=== PATIENT | female | born 1985 | race American Indian/Alaskan Native ===

== ENCOUNTER 2022-06-26 11:33 | Emergency (ER) | payer MEDICAID ==
--- NOTE | 2022-06-26 11:50 | Emergency Department Report ---
Blank Doc - Documentation Documentation: 36-year-old female that presents with upper resp symptoms, dysuria, and pelvic pain. 1- This is a initial triage assessment/medical screening only. Full assessment and work-up will be completed once the patient is in proper hospital gown, ED bed and in a private room setting. This initial assessment/diagnostic orders/clinical plan/ treatment(s) is/are subject to change based on pt's health status, clinical progression and re-assessment by fellow clinical providers in the ED. Further treatment and workup at subsequent clinical providers discretion. Patient/guardians urged not to elope from ED as their condition may be serious if not clinically assessed and managed. 2-labs 3-UA 4-CXR The patient was evaluated in the emergency department for symptoms described in the history of present illness. He/she was evaluated in the context of the global COVID-19 pandemic, which necessitated consideration that the patient might be at risk for infection with the virus that causes COVID-19. Institutional protocols and algorithms that pertain to the evaluation of patients at risk for COVID-19 are in a state of rapid change based on information released by regulatory bodies including the CDC and federal and state organizations. These policies and algorithms were followed during the patient's care in the emergency department. Please note that these policies, procedures and recommendations changed on a rapid basis.
[2022-06-26 13:19] LABS: Basophils # (Auto) 0.1 K/mm3 (0.0-0.1); Basophils % (Auto) 0.7 % (0.0-1.8); Eosinophils % (Auto) 0.6 % (0.0-4.3); Hematocrit 40.1 % (30.3-42.9); Hemoglobin 12.8 gm/dl (10.1-14.3); Lymphocytes # (Auto) 1.8 K/mm3 (1.2-5.4); Lymphocytes % (Auto) 21.7 % (13.4-35.0); Mean Corpuscular HGB Conc 32 % (30-34); Mean Corpuscular Volume 94 fl (79-97); Monocytes # (Auto) 0.7 K/mm3 (0.0-0.8); Monocytes % (Auto) 8.9 % (0.0-7.3); Platelet Count 377 K/mm3 (140-440); Red Blood Count 4.26 M/mm3 (3.65-5.03); Red Cell Distribution Width 16.4 % (13.2-15.2)
[2022-06-26 13:25] LABS: Alanine Aminotransferase 18 units/L (7-56); Albumin 4.6 g/dL (3.9-5); BUN/Creatinine Ratio 16; Blood Urea Nitrogen 13 mg/dL (7-17); Calcium 9.4 mg/dL (8.4-10.2); Hemolysis Index 3
[2022-06-26 13:25] LABS: Bacteria,Urine 1+ /HPF (Negative); Color,Urine Yellow (Yellow); Mucus,Urine FEW /HPF
[2022-06-26 13:44] LABS: HCG Qualitative,Urine Negative (Negative)
--- NOTE | 2022-06-26 14:38 | XRay Report ---
CHEST 2 VIEWS INDICATION / CLINICAL INFORMATION: cough. COMPARISON: None available. FINDINGS: SUPPORT DEVICES: None. HEART / MEDIASTINUM: No significant abnormality. LUNGS / PLEURA: No significant pulmonary or pleural abnormality. No pneumothorax. ADDITIONAL FINDINGS: No significant additional findings. IMPRESSION: 1. No acute findings. Signer Name: Hardeep Alford MD Signed: 06/26/2022 2:33 PM Workstation Name: [id number]
[2022-06-26] MEDS ORDERED: KETOROLAC 10 MG TAB PO ONE (15:00)
[2022-06-26] MEDS ORDERED: ACETAMINOPHEN W/CODEINE 300-30 MG TAB PO ONE (15:00)
[2022-06-26] MEDS ORDERED: BENZONATATE 100 MG CAP PO ONE (15:00)
[2022-06-26] MEDS ORDERED: predniSONE 20 MG TAB PO ONE (15:00)
--- NOTE | 2022-06-26 15:33 | Emergency Department Report ---
ED ENT HPI - General Chief complaint: Upper Respiratory Infection Stated complaint: ASTHMA FLARE/CHEST PAIN Time Seen by Provider: 06/26/22 11:49 Source: patient Mode of arrival: Ambulatory Limitations: No Limitations - History of Present Illness Initial comments: 36-year-old black female with a past medical history of asthma and diabetes presents to the emergency department for evaluation of few day history of shortness of breath, cough, headache, right ear pain, and fever. She states that her T-max was 103 this morning. She states that she had a negative COVID test 2 days ago. MD complaint: sore throat, ear pain, other (Headache, fever, shortness of breath) -: Gradual, days(s) (2-3) Location: R ear, throat Severity scale (0 -10): 9 Quality: aching Consistency: constant Associated Symptoms: fever, cough, pain with swallowing, sore throat, rhinorrhea. denies: gum swelling, toothache, tinnitus, hearing loss, discharge from ear - Related Data Previous Rx's Medication Instructions Recorded Last Taken Type Azithromycin 250 mg PO DAILY #6 tab 06/26/22 Unknown Rx Benzonatate [Tessalon Perles] 100 mg PO Q8HR PRN #30 cap 06/26/22 Unknown Rx Brompheniramine/Pseudoephed/Dm 10 ml PO TID PRN #120 ml 06/26/22 Unknown Rx [Bromfed Dm Cough Syrup] Allergies Allergy/AdvReac Type Severity Reaction Status Date / Time Penicillins Allergy Anaphylaxis Verified 06/26/22 11:48 ED Dental HPI - General Chief complaint: Upper Respiratory Infection Stated complaint: ASTHMA FLARE/CHEST PAIN Time Seen by Provider: 06/26/22 11:49 Source: patient Mode of arrival: Ambulatory Limitations: No Limitations - Related Data Previous Rx's Medication Instructions Recorded Last Taken Type Azithromycin 250 mg PO DAILY #6 tab 06/26/22 Unknown Rx Benzonatate [Tessalon Perles] 100 mg PO Q8HR PRN #30 cap 06/26/22 Unknown Rx Brompheniramine/Pseudoephed/Dm 10 ml PO TID PRN #120 ml 06/26/22 Unknown Rx [Bromfed Dm Cough Syrup] Allergies Allergy/AdvReac Type Severity Reaction Status Date / Time Penicillins Allergy Anaphylaxis Verified 06/26/22 11:48 ED Review of Systems ROS: Stated complaint: ASTHMA FLARE/CHEST PAIN Other details as noted in HPI Comment: All other systems reviewed and negative Constitutional: fever, malaise. denies: chills, weakness Eyes: denies: eye pain, eye discharge, vision change ENT: ear pain, throat pain, congestion. denies: dental pain Respiratory: cough, shortness of breath. denies: wheezing Cardiovascular: denies: chest pain, palpitations, dyspnea on exertion, orthopnea, edema, syncope, paroxysmal nocturnal dyspnea Gastrointestinal: denies: abdominal pain, nausea, vomiting Genitourinary: denies: urgency, dysuria Musculoskeletal: denies: back pain Neurological: headache. denies: weakness, numbness, paresthesias, confusion, abnormal gait ED Past Medical Hx - Past Medical History Hx Diabetes: Yes Hx Asthma: Yes - Surgical History Additional Surgical History: - Social History Smoking Status: Current Every Day Smoker - Medications Home Medications: Home Medications Medication Instructions Recorded Confirmed Last Taken Type Azithromycin 250 mg PO DAILY #6 tab 06/26/22 Unknown Rx Benzonatate [Tessalon Perles] 100 mg PO Q8HR PRN #30 cap 06/26/22 Unknown Rx Brompheniramine/Pseudoephed/Dm 10 ml PO TID PRN #120 ml 06/26/22 Unknown Rx [Bromfed Dm Cough Syrup] ED Physical Exam - General Limitations: No Limitations General appearance: alert, in no apparent distress - Head Head exam: Present: atraumatic, normocephalic - Eye Eye exam: Present: normal appearance. Absent: conjunctival injection, periorbital swelling, periorbital tenderness - ENT ENT exam: Absent: normal exam (Bilateral nasal mucosal edema), normal orophraynx (Erythema noted to posterior oropharynx) - Expanded ENT Exam Expanded TM/Canal exam: Erythema: Right TM, Bulging: Right TM Mouth exam: Present: normal external inspection Throat exam: Positive: tonsillar erythema. Negative: tonsillomegaly, tonsillar exudate, R peritonsillar mass - Neck Neck exam: Present: normal inspection, lymphadenopathy. Absent: tenderness - Respiratory Respiratory exam: Present: normal lung sounds bilaterally, chest wall tenderness. Absent: respiratory distress, wheezes, rales, rhonchi, stridor - Cardiovascular Cardiovascular Exam: Present: regular rate, normal heart sounds - GI/Abdominal GI/Abdominal exam: Present: soft, normal bowel sounds. Absent: distended, tenderness, guarding, rebound, rigid - Extremities Exam Extremities exam: Present: normal inspection, normal capillary refill - Back Exam Back exam: Present: normal inspection. Absent: CVA tenderness (R), CVA tenderness (L), vertebral tenderness - Neurological Exam Neurological exam: Present: alert, oriented X3, CN II-XII intact, normal gait. Absent: motor sensory deficit - Psychiatric Psychiatric exam: Present: normal affect, normal mood - Skin Skin exam: Present: warm, dry, intact, normal color ED Course Vital Signs 06/26/22 11:44 Temperature 99.0 F Pulse Rate 95 H Respiratory 18 Rate Blood Pressure 118/87 O2 Sat by Pulse 100 Oximetry ED Medical Decision Making - Lab Data Result diagrams: 06/26/22 12:40 06/26/22 12:40 - Radiology Data Radiology results: report reviewed, image reviewed Chest x-ray: FINDINGS: SUPPORT DEVICES: None. HEART / MEDIASTINUM: No significant abnormality. LUNGS / PLEURA: No significant pulmonary or pleural abnormality. No pneumothorax. ADDITIONAL FINDINGS: No significant additional findings. IMPRESSION: 1. No acute findings. - Medical Decision Making 36-year-old black female with a past medical history of asthma and diabetes p resents to the emergency department for evaluation of few day history of shortness of breath, cough, headache, right ear pain, and fever. She states that her T-max was 103 this morning. She states that she had a negative COVID test 2 days ago. Chest x-ray, CBC, CMP, UA, and UPT unremarkable. Patient noted to have right otitis media on exam. Patient will be discharged home with Z-Andrew, Bromnafisa, and Teslexie Martinez to use as directed. She is advised to follow-up with her primary care provider if no improvement or worsening symptoms. She verbalizes understanding of and agreement with plan of care. Critical care attestation.: If time is entered above; I have spent that time in minutes in the direct care of this critically ill patient, excluding procedure time. ED Disposition Clinical Impression: URI with cough and congestion Otitis media Qualifiers: Otitis media type: suppurative Chronicity: acute Laterality: right Recurrence: non-recurrent Spontaneous tympanic membrane rupture: without spontaneous rupture Qualified Code(s): H66.001 - Acute suppurative otitis media without spontaneous rupture of ear drum, right ear Disposition: 01 HOME / SELF CARE / HOMELESS Is pt being admited?: No Does the pt Need Aspirin: No Condition: Stable Instructions: Otitis Media, Adult, [id number], Upper Respiratory Infection, Adult, [id number] Additional Instructions: Take medications as prescribed. Follow-up with your primary care provider if no improvement or worsening symptoms. Return to the emergency department as needed. Prescriptions: Azithromycin 250 mg PO DAILY #6 tab Brompheniramine/Pseudoephed/Dm [Bromfed Dm Cough Syrup] 10 ml PO TID PRN #120 ml PRN Reason: Cough Benzonatate [Tessalon Perles] 100 mg PO Q8HR PRN #30 cap PRN Reason: Cough Referrals: DESTINI ARSHAD MD [Staff Physician] - 3-5 Days Time of Disposition: 15:39
[2022-06-26 15:52] VITALS: BP 130/91
== END 2022-06-28 17:36 | disposition home or self-care (01) ==
LOC: ED 11:33
DX: J06.9 Acute upper respiratory infection, unspecified (principal); H66.91 Otitis media, unspecified, right ear; E11.9 Type 2 diabetes mellitus without complications; J45.909 Unspecified asthma, uncomplicated; F17.200 Nicotine dependence, unspecified, uncomplicated; Z98.890 Other specified postprocedural states; Z88.0 Allergy status to penicillin; Z79.899 Other long term (current) drug therapy
CPT/HCPCS: 36415; 71046; 80053; 81001; 81025; 85025; 99284